=== PATIENT | male | born 1965 | race Caucasian/White ===

== ENCOUNTER → 2022-05-07 15:48 | Outpatient (CLI) | payer BC, SELFPAY ==
--- NOTE | ~2022-05-07 | US_ITS ---
EXAMINATION: US thyroid DATE: 05/07/2022 16:04 INDICATION: Thyroid nodule. TECHNIQUE: Multiple ultrasound images of the thyroid were obtained. COMPARISON: Neck CT 03/01/2008 FINDINGS: The right thyroid lobe measures 5.4 x 1.7 x 2.2 cm. The left thyroid lobe measures 4.6 x 1.9 x 1.6 c m. In the right thyroid lobe, there is a 1.9 cm solid, hypoechoic, wider than tall nodule with ill-d efined margin without echogenic foci (TI-RADS TR4). IMPRESSION: 1. Right thyroid nodule. Ultrasound-guided fine-needle aspiration is recommended. Reviewed, dictated and finalized at location B. IMPRESSION: 1. Right thyroid nodule. Ultrasound-guided fine-needle aspiration is recommende d.
== END ==
PROVIDERS: PCP Family Medicine Adolescent Medicine; Visit Provider Family Medicine Adolescent Medicine
DX: E04.1 Nontoxic single thyroid nodule (principal)
CPT/HCPCS: 76536

== ENCOUNTER 2022-05-11 13:15 | Outpatient (CLI) | payer BC, SELFPAY ==
--- NOTE | ~2022-05-11 | US_ITS ---
EXAMINATION: US FNA w image guidance DATE: 05/11/2022 14:16 INDICATION: Right thyroid nodule TECHNIQUE: A time-out was performed to verify the patient's name, date of , and procedure to be performed . The procedure and its benefits and risks were discussed with the patient. Risks specifically discus sed included bleeding and infection. The patient understood the risks and agreed to proceed. The neck was prepped and draped in the usual sterile manner. 3 mL 1% lidocaine was used for local anesthesia . 6 passes were made with a 25G needle into the lesion. Appropriate needle location was documented with continuous sonographic guidance. A sterile bandage was applied. There were no immediate compli cations. FINDINGS: Grayscale ultrasound images demonstrate biopsy needles advanced into a 1.7 cm predominantly solid rig ht thyroid nodule. IMPRESSION: 1. Successful ultrasound-guided fine needle aspiration of . Reviewed, dictated and finalized at location A.
== END 2022-05-11 13:16 | disposition home or self-care (01) ==
LOC: ANHIMG 13:16
PROVIDERS: PCP Family Medicine Adolescent Medicine; Visit Provider Family Medicine Adolescent Medicine
DX: E04.1 Nontoxic single thyroid nodule (principal)
CPT/HCPCS: 10005; 88173; 88305

== ENCOUNTER 2022-06-08 13:06 | Outpatient (CLI) | payer BC, SELFPAY ==
--- NOTE | ~2022-06-08 | US_ITS ---
EXAMINATION: US FNA w image guidance DATE: 06/08/2022 14:19 INDICATION: Nontoxic single thyroid nodule. TECHNIQUE: The procedure and its benefits and risks were discussed with the patient. Risks specifically discusse d included bleeding. The patient verbalized understanding of the risks and agreed to proceed. The nec k was prepped and draped in the usual sterile manner. 1% lidocaine was used for local anesthesia. 6 passes were made with a 25G needle into the lesion under ultrasound guidance. There were no immedia te complications. FINDINGS: Grayscale ultrasound images demonstrate needles advanced into a 1.9 cm nodule in right thyroid lobe f or biopsy. IMPRESSION: 1. Ultrasound-guided fine needle aspiration of a right thyroid nodule. Reviewed, dictated and finalized at location A.
== END 2022-06-08 13:07 | disposition home or self-care (01) ==
PROVIDERS: PCP Family Medicine Adolescent Medicine; Visit Provider Otolaryngology
DX: E04.1 Nontoxic single thyroid nodule (principal)
CPT/HCPCS: 10005; 88173; 88305

== ENCOUNTER 2024-06-02 16:08 | Outpatient (CLI) | payer BC, SELFPAY ==
--- NOTE | ~2024-06-02 | US_ITS ---
EXAMINATION: US thyroid DATE: 06/02/2024 16:29 INDICATION: Thyroid nodule. TECHNIQUE: Multiple ultrasound images of the thyroid were obtained. COMPARISON: Ultrasound 06/08/2022, 05/11/2022, 05/07/2022 FINDINGS: The right thyroid lobe measures 4.1 x 1.9 x 1.6 cm. The left thyroid lobe measures 4.2 x 1.9 x 1.6 c m. In the right thyroid lobe, there is a 16 mm solid, hypoechoic, wider than tall nodule with lobula r margins without echogenic foci (TI-RADS TR4). IMPRESSION: 1. Right thyroid nodule, stable from 06/08/2022 when biopsy was benign. Reviewed, dictated and finalized at location E.
== END 2024-06-02 16:09 ==
PROVIDERS: PCP Family Medicine Adolescent Medicine; Visit Provider Family Medicine Adolescent Medicine
DX: E04.1 Nontoxic single thyroid nodule (principal)
CPT/HCPCS: 76536

== ENCOUNTER 2025-01-27 14:48 | Outpatient (CLI) | payer BC, SELFPAY ==
--- NOTE | ~2025-01-27 | XR_ITS ---
XR knee LT 3V Ordering provider: Kyle Soto MD History: . M25.562 - Pain in left knee . Comparison: None. FINDINGS: BONES: No acute fracture or dislocation. JOINT SPACES: Normal. SOFT TISSUES: Normal. IMPRESSION: No acute osseous abnormality left knee. Reviewed, dictated and finalized at location A. CAL STAFF CREDENTIALING COORDINATOR
== END 2025-01-27 14:49 | disposition home or self-care (01) ==
LOC: MICIMG 14:48
PROVIDERS: PCP Family Medicine Adolescent Medicine; Visit Provider Family Medicine Adolescent Medicine
DX: M25.562 Pain in left knee (principal)
CPT/HCPCS: 73562